=== PATIENT | male | born 1995 | race Caucasian/White ===

== ENCOUNTER 2022-01-14 09:38 | Emergency (ER) | payer BC ==
[~2022-01-14] VITALS: Ht 180.3 cm; Wt 74.8 kg
--- NOTE | 2022-01-14 09:49 | NUR ---
TO ER BED 9. BIBS HAVING ON AND OFF PALPITATIONS, DIZZINESS, AND TINGLING OF HIS FINGER X3DAYS. DENIES NAUSEA, VOMITTING, CARDIAC HISTORY. PT ATTCHED TO MONITOR. WILL CONTINUE TO MONITOR.
[2022-01-14 10:13] LABS: BASOPHILS % (AUTO) 1.1 % (0.0-2.0); EOSINOPHILS % (AUTO) 1.3 % (0.0-6.0); HEMATOCRIT 46 % (39-51); HEMOGLOBIN 15.4 g/dL (13.5-17.5); LYMPHOCYTES # (AUTO) 1.7 K/uL (0.8-4.8); LYMPHOCYTES % (AUTO) 44.2 % (20.0-44.0); MEAN CORPUSCULAR HGB CONC 34 g/dl (31.0-36.0); MEAN CORPUSCULAR VOLUME 87 fL (80-96); MONOCYTES # (AUTO) 0.3 K/uL (0.1-1.30); MONOCYTES % (AUTO) 7.4 % (2.0-12.0); NEUTROPHILS # (AUTO) 1.7 K/uL (1.8-8.9); PLATELET COUNT (AUTO) 206 K/uL (150-450); RED BLOOD CELL COUNT(AUTO) 5.27 MIL/uL (4.5-6.0); WHITE BLOOD COUNT (AUTO) 3.8 K/uL (4.3-11.0)
[2022-01-14 10:27] LABS: CALCIUM, SERUM 8.4 mg/dL (8.5-10.1); POTASSIUM 3.8 mmol/L (3.5-5.1)
--- NOTE | 2022-01-14 10:57 | NUR ---
IV removed. Catheter intact and site benign. Pressure and 4x4 applied to site. No bleeding noted.Patient discharged to home in stable condition. Written and verbal after care instructions given. Patient verbalizes understanding of instruction.
[2022-01-14 10:58] VITALS: BP 132/79
== END 2022-01-14 10:58 | disposition home or self-care (01) ==
LOC: ER 09:38
DX: R00.2 Palpitations (principal); J45.909 Unspecified asthma, uncomplicated
CPT/HCPCS: 36415; 71045-TC; 80048-TC; 83735-TC; 85025-TC